=== PATIENT | female | born 1975 | race Hispanic/Latino ===

== ENCOUNTER 2021-01-01 02:11 | Emergency (ER) | payer OTHER, SELFPAY ==
[2021-01-01] MEDS ORDERED: ZIPRASIDONE MESYLATE 20 MG VIAL IM ONE ×2 (04:17→06:15)
--- NOTE | 2021-01-01 04:20 | Emergency Department Report ---
<ALEXANDRA HUMPHREY - Last Filed: 01/01/21 15:03> ED Psych HPI - General Chief Complaint: Psych Stated Complaint: PSYCH Time Seen by Provider: 01/01/21 04:16 - Related Data Allergies Allergy/AdvReac Type Severity Reaction Status Date / Time No Known Allergies Allergy Unverified 01/01/21 06:32 ED Course - Reevaluation(s) Reevaluation #3: 01/01/21 15:04 Psychiatric Consult Note Patient Name: SARAH PATEL Date of : 79 Patient Status: Emergency Emergency Provider: MASSIMO CAMARENA III Date: 01/01/21 11:21 Initialization Date: 01/01/21 11:21 History of Present Illness - Reason for Consult Consult date: 01/01/21 Reason for consult: MHE Requesting physician: MASSIMO CAMARENA III - History of Present Psychiatric Illness Per ED Provider: Patient is a 45-year-old female that presents emergency room with the police and EMS for running on highway negative. Patient's was on a 70 5 running neck. Patient states she was chasing someone and somebody was chasing her but she does not know who. Patient states that she was negative. Patient's not sure how she got negative. Patient states she was being freed. Patient states that she is on the grind. Patient denies pain. Patient denies chest pain shortness of breath. Patient denies pain complaint. Patient denies suicidal and homicidal ideations. Patient denies hallucinations. PSYCH HPI Patient is a 45-year-old, single, employed female with past psychiatric history of bipolar PTSD and anxiety and has past medical history of celiac disease who currently lives with her sister in [place] who goes by the name of Carin with phone #[phone] brought to the ED by EMS after patient was found running on the highway naked. Patient states she is here because she [place] [address] but naked, she states that she does not know what happened or how she ended up naked, kenan ent did endorse prior history of meth opiates and marijuana use. Patient states that she currently resides with her sister and she would like assistance to be contacted so that she knows that she is here. At time of evaluation patient is alert and oriented x3 PAST PSYCHIATRIC HISTORY Diagnoses: Bipolar, PTSD, anxiety Suicide attempts or Self-harm behavior: None reported Prior psychiatric hospitalizations: Yes Substance Abuse history: Meth, opiates and marijuana Previous psychiatric medications tried: Yes Outpatient treatment: Unknown PAST MEDICAL HISTORY: Celiac disease Family Psychiatric History: None reported or documented SOCIAL HISTORY Marital Status: Single Living Arrangements: With sister Employment Status: Employed Access to guns/weapons: None reported Education: GED History of Abuse: None reported Legal History: Yes REVIEW OF SYSTEMS Constitutional: Negative for weight loss ENT: Negative for stridor Respiratory: Negative for cough or hemoptysis All other systems reviewed and are negative MENTAL STATUS EXAMINATION General Appearance and Behavior: Age appropriate, fair hygiene, wearing appropriate clothes, good eye contact, cooperative polite with questioning. Cooperation: Participating/engaged Psychomotor Behavior: unremarkable and within normal limits Mood: sad Affect and affective range: congruent with mood Thought Process: Fluent/Logical, Thought Content: Within reality, Speech: Normal volume, Regular rate and rhythm, Intellectual Functioning: Average Suicidal Ideation: Denies SI Homicidal Ideation: Denies HI Impulse Control: Unimpaired Insight and Judgment: Normal insight and judgment, Memory: Normal, Attention: Normal, Orientation: Alert, oriented, Diagnoses: Assessment and Plan - Psychiatric problem (1) Illicit drug use Current Visit: Yes Status: Acute F19.90 Treatment Plan Patient resting positive for meth and marijuana MEDICATIONS: Risks, benefits and alternatives of medications discussed with the patient, questions answered and consent obtained from patient. PSYCHOTHERAPY: Supportive psychotherapy provided MEDICAL: Per primary team DELIRIUM PRECAUTIONS: Please re-orient patient frequently, keep lights on during the day, and minimize benzodiazepines and opiates as these medications could worsen patient's confusion. SCULPTURE INSTRUCTOR: DISPOSITION: Do Not Recommend acute inpatient psychiatric hospitalization at this time. Case discussed with Dr. Mclain who agrees with current disposition LEGAL STATUS: 1013 rescinded FOLLOW-UP: Will sign off Thank you for the consult. Please contact with any questions and/or concerns. Medications and Allergies Allergies Allergy/AdvReac Type Severity Reaction Status Date / Time No Known Allergies Allergy Unverified 01/01/21 06:32 Mental Status Exam - Vital signs Last Vital Signs Temp 97.9 F 01/01/21 09:15 Pulse 66 01/01/21 09:15 Resp 18 01/01/21 09:15 BP 128/71 01/01/21 09:15 Pulse Ox 98 01/01/21 09:15 Results Result Diagrams: 01/01/21 04:33 [Image 0] 01/01/21 04:33 [Image 1] Abnormal lab results 01/01/21 01/01/21 01/01/21 Range/Units 04:33 04:33 04:33 WBC 16.3 H (4.5-11.0) K/mm3 MCH 33 H (28-32) pg Lymph % (Auto) 10.7 L (13.4-35.0) % [place] # (Auto) 0.9 H (0.0-0.8) K/mm3 Seg Neutrophils % 83.1 H (40.0-70.0) % Seg Neutrophils # 13.5 H (1.8-7.7) K/mm3 Salicylates < 0.3 L (2.8-20.0) mg/dL Acetaminophen 5.0 L (10.0-30.0) ug/mL All other labs normal. Assessment and Plan - Psychiatric problem (1) Illicit drug use Current Visit: Yes Status: Acute ED Medical Decision Making - Lab Data Result diagrams: 01/01/21 04:33 01/01/21 04:33 - Medical Decision Making Patient is now calm and cooperative. Psychiatric team is seeing the patient and did not recommend inpatient hospitalization. The effects of the methamphetamine intoxication and appear to have worn off and patient stable for discharge. ED Disposition Clinical Impression: Acute psychosis, Illicit drug use Disposition: DC-01 TO HOME OR SELFCARE Does the pt Need Aspirin: No Condition: Stable Additional Instructions: Professional and Agency Contacts To help Resolve Crises (26/02) [place] Crisis Line: Suicide Prevention Line: Crisis Text Line: Text START to 608409 Emergency: 911 Outpatient COMMUNITY Behavioral Health Resources: [place]: [facility] [address], [place] [address] [facility] [address] [place] [address] Sunday thru Sunday - 8am - 5pm Call to schedule an assessment for mental health and substance abuse programs [facility] Address: [address] [place] [id number] Sunday thru Sunday- 7am-2pm [facility] Address: [address] [place] [id number] Sunday thru Sunday: 8:30AM-5PM SUBSTANCE ABUSE PROGRAMS: [facility]: Location: [place], [place] [employer] Address: [address] [place] [address] [facility]: Address: [address] [place] [address] [facility]: Address: [address] [place] [address] [facility] Community: Address: [address] [place] [address] Referrals: PRIMARY CARE, [Primary Care Provider] - 3-5 Days Time of Disposition: 15:05 <MASSIMO CAMARENA III - Last Filed: 01/09/21 16:09> ED Psych HPI - General Source: patient, police, EMS Mode of arrival: Stretcher - History of Present Illness Initial Comments: Patient is a 45-year-old female that presents emergency room with the police and EMS for running on highway negative. Patient's was on a 70 5 running neck. Patient states she was chasing someone and somebody was chasing her but she does not know who. Patient states that she was negative. Patient's not sure how she got negative. Patient states she was being freed. Patient states that she is on the grind. Patient denies pain. Patient denies chest pain shortness of breath. Patient denies pain complaint. Patient denies suicidal and homicidal ideations. Patient denies hallucinations. Patient denies recent travel. Patient denies recent international travel. Patient denies exposure to the novel coronavirus. Patient denies sick contacts. Patient denies fever and chills. Patient denies cough. Patient denies diarrhea. Patient denies coming in contact with anybody with symptoms of the novel coronavirus. MD Complaint: altered mental status -: Sudden Associated Psychiatric Symptoms: racing thoughts, delusions History of same: No Quality: constant Improves With: none Worsens With: none Treatments Prior to Arrival: placed on mental he ED Review of Systems ROS: Stated complaint: PSYCH Other details as noted in HPI Constitutional: denies: chills, fever Eyes: denies: eye pain, eye discharge, vision change ENT: denies: ear pain, throat pain Respiratory: denies: cough, shortness of breath, wheezing Cardiovascular: denies: chest pain, palpitations Endocrine: no symptoms reported Gastrointestinal: denies: abdominal pain, nausea, diarrhea Genitourinary: denies: urgency, dysuria, discharge Musculoskeletal: denies: back pain, joint swelling, arthralgia Skin: denies: rash, lesions Neurological: denies: headache, weakness, paresthesias Psychiatric: as per HPI. denies: anxiety, depression Hematological/Lymphatic: denies: easy bleeding, easy bruising ED Past Medical Hx - Past Medical History Previous Medical History?: No - Surgical History Past Surgical History?: No - Family History Family history: no significant - Social History Smoking Status: Current Every Day Smoker Substance Use Type: None ED Physical Exam - General Limitations: Altered Mental Status, Other General appearance: alert, in no apparent distress - Head Head exam: Present: atraumatic, normocephalic - Eye Eye exam: Present: normal appearance - ENT ENT exam: Present: mucous membranes moist - Neck Neck exam: Present: normal inspection - Respiratory Respiratory exam: Present: normal lung sounds bilaterally. Absent: respiratory distress - Cardiovascular Cardiovascular Exam: Present: regular rate, normal rhythm. Absent: systolic murmur, diastolic murmur, rubs, gallop - GI/Abdominal GI/Abdominal exam: Present: soft, normal bowel sounds - Extremities Exam Extremities exam: Present: normal inspection - Back Exam Back exam: Present: normal inspection - Neurological Exam Neurological exam: Present: alert, oriented X3 - Expanded Psychiatric Exam Expanded Focused psych exam: Present: pressured speech, delusional, restlessness, flight of ideas, loose associations - Skin Skin exam: Present: warm, dry, intact, normal color. Absent: rash ED Course Vital Signs 01/01/21 01/01/21 02:11 09:15 Temperature 99 F 97.9 F Pulse Rate 114 H 66 Respiratory 20 18 Rate Blood Pressure 143/77 128/71 [Right] O2 Sat by Pulse 97 98 Oximetry - Reevaluation(s) Reevaluation #1: Initial evaluation done. Patient placed on a 1013. Patient is an ER hold. 01/01/21 04:19 Reevaluation #2: Patient escape the ER. Patient was brought back by security. Patient will be given Geodon for acute agitation. Patient's labs are pending. Patient to the oncoming physician and for medical clearance. 01/01/21 06:08 ED Medical Decision Making - Lab Data Result diagrams: 01/01/21 04:33 01/01/21 04:33 - Medical Decision Making Patient is a 45-year-old female who presents emergency room for mental health evaluation. Patient brought in by EMS and the police. Patient found running down the middle of [place] highway negative. Patient detained by police and brought for mental health evaluation. Patient immediately placed on a 1013. Patient had labs done. - Differential Diagnosis Acute psychosis, delusions Critical care attestation.: If time is entered above; I have spent that time in minutes in the direct care of this critically ill patient, excluding procedure time. ED Disposition Is pt being admited?: No Does the pt Need Aspirin: No Time of Disposition: 06:08
[2021-01-01 05:07] LABS: Basophils % (Auto) 0.2 % (0.0-1.8); Eosinophils % (Auto) 0.3 % (0.0-4.3); Hematocrit 35.4 % (30.3-42.9); Hemoglobin 12.2 gm/dl (10.1-14.3); Lymphocytes # (Auto) 1.7 K/mm3 (1.2-5.4); Lymphocytes % (Auto) 10.7 % (13.4-35.0); Mean Corpuscular HGB Conc 34 % (30-34); Mean Corpuscular Volume 95 fl (79-97); Monocytes # (Auto) 0.9 K/mm3 (0.0-0.8); Monocytes % (Auto) 5.7 % (0.0-7.3); Platelet Count 280 K/mm3 (140-440); Red Blood Count 3.74 M/mm3 (3.65-5.03); Red Cell Distribution Width 13.7 % (13.2-15.2)
[2021-01-01 06:21] LABS: BUN/Creatinine Ratio 17; Blood Urea Nitrogen 15 mg/dL (7-17); Calcium 9.2 mg/dL (8.4-10.2); Hemolysis Index 5
[2021-01-01 07:36] LABS: Bilirubin,Urine NEG (Negative); Blood,Urine NEG (Negative); Color,Urine Yellow (Yellow); Mucus,Urine FEW /HPF; Protein,Urine <15 mg/dL mg/dL (Negative); Urobilinogen,Urine < 2.0 mg/dL (<2.0)
[2021-01-01 07:41] LABS: Benzodiazepines Screen,Urine Negative; Cocaine Screen,Urine Negative; Methadone Screen,Urine Negative; Opiate Screen,Urine Negative
[2021-01-01 07:54] LABS: Amphetamine Screen,Urine Positive; Cannabinoid Screen,Urine Positive
[2021-01-01 09:16] VITALS: BP 128/71
--- NOTE | 2021-01-01 10:57 | Event Note ---
Date: 01/01/21 Patient seen this morning on psych rounding. Patient resting comfortably. She was placed in seclusion due to escape attempt. No further issues. [id number] is been done.
--- NOTE | 2021-01-01 11:22 | Consultation ---
History of Present Illness - Reason for Consult Consult date: 01/01/21 Reason for consult: MHE Requesting physician: MASSIMO CAMARENA III - History of Present Psychiatric Illness Per ED Provider: Patient is a 45-year-old female that presents emergency room with the police and EMS for running on highway negative. Patient's was on a 70 5 running neck. Patient states she was chasing someone and somebody was chasing her but she does not know who. Patient states that she was negative. Patient's not sure how she got negative. Patient states she was being freed. Patient states that she is on the grind. Patient denies pain. Patient denies chest pain shortness of breath. Patient denies pain complaint. Patient denies suicidal and homicidal ideations. Patient denies hallucinations. PSYCH HPI Patient is a 45-year-old, single, employed female with past psychia tric history of bipolar PTSD and anxiety and has past medical history of celiac disease who currently lives with her sister in [place] who goes by the name of Carin with phone #[phone] brought to the ED by EMS after patient was found running on the highway naked. Patient states she is here because she [place] [address] but naked, she states that she does not know what happened or how she ended up naked, patient did endorse prior history of meth opiates and marijuana use. Patient s tates that she currently resides with her sister and she would like assistance to be contacted so that she knows that she is here. At time of evaluation patient is alert and oriented x3 PAST PSYCHIATRIC HISTORY Diagnoses: Bipolar, PTSD, anxiety Suicide attempts or Self-harm behavior: None reported Prior psychiatric hospitalizations: Yes Substance Abuse history: Meth, opiates and marijuana Previous psychiatric medications tried: Yes Outpatient treatment: Unknown PAST MEDICAL HISTORY: Celiac disease Family Psychiatric History: None reported or documented SOCIAL HISTORY Marital Status: Single Living Arrangements: With sister Employment Status: Employed Access to guns/weapons: None reported Education: GED History of Abuse: None reported Legal History: Yes REVIEW OF SYSTEMS Constitutional: Negative for weight loss ENT: Negative for stridor Respiratory: Negative for cough or hemoptysis All other systems reviewed and are negative MENTAL STATUS EXAMINATION General Appearance and Behavior: Age appropriate, fair hygiene, wearing appropriate clothes, good eye contact, cooperative polite with questioning. Cooperation: Participating/engaged Psychomotor Behavior: unremarkable and within normal limits Mood: sad Affect and affective range: congruent with mood Thought Process: Fluent/Logical, Thought Content: Within reality, Speech: Normal volume, Regular rate and rhythm, Intellectual Functioning: Average Suicidal Ideation: Denies SI Homicidal Ideation: Denies HI Impulse Control: Unimpaired Insight and Judgment: Normal insight and judgment, Memory: Normal, Attention: Normal, Orientation: Alert, oriented, Diagnoses: Assessment and Plan - Psychiatric problem (1) Illicit drug use Current Visit: Yes Status: Acute F19.90 Treatment Plan Patient resting positive for meth and marijuana MEDICATIONS: Risks, benefits and alternatives of medications discussed with the patient, questions answered and consent obtained from patient. PSYCHOTHERAPY: Supportive psychotherapy provided MEDICAL: Per primary team DELIRIUM PRECAUTIONS: Please re-orient patient frequently, keep lights on during the day, and minimize benzodiazepines and opiates as these medications could worsen patient's confusion. CONTROLS TECHNICIAN: DISPOSITION: Do Not Recommend acute inpatient psychiatric hospitalization at this time. Case discussed with Dr. Mclain who agrees with current disposition LEGAL STATUS: 1013 rescinded FOLLOW-UP: Will sign off Thank you for the consult. Please contact with any questions and/or concerns. Medications and Allergies Allergies Allergy/AdvReac Type Severity Reaction Status Date / Time No Known Allergies Allergy Unverified 01/01/21 06:32 Mental Status Exam - Vital signs Last Vital Signs Temp 97.9 F 01/01/21 09:15 Pulse 66 01/01/21 09:15 Resp 18 01/01/21 09:15 BP 128/71 01/01/21 09:15 Pulse Ox 98 01/01/21 09:15 Results Result Diagrams: 01/01/21 04:33 01/01/21 04:33 Abnormal lab results 01/01/21 01/01/21 01/01/21 Range/Units 04:33 04:33 04:33 WBC 16.3 H (4.5-11.0) K/mm3 MCH 33 H (28-32) pg Lymph % (Auto) 10.7 L (13.4-35.0) % [place] # (Auto) 0.9 H (0.0-0.8) K/mm3 Seg Neutrophils % 83.1 H (40.0-70.0) % Seg Neutrophils # 13.5 H (1.8-7.7) K/mm3 Salicylates < 0.3 L (2.8-20.0) mg/dL Acetaminophen 5.0 L (10.0-30.0) ug/mL All other labs normal. Assessment and Plan - Psychiatric problem (1) Illicit drug use Current Visit: Yes Status: Acute
== END 2021-01-01 16:49 | disposition home or self-care (01) ==
LOC: ED 02:11
DX: F23 Brief psychotic disorder (principal); Z20.822 Contact with and (suspected) exposure to COVID-19; F19.10 Other psychoactive substance abuse, uncomplicated; F17.200 Nicotine dependence, unspecified, uncomplicated; Z79.899 Other long term (current) drug therapy
CPT/HCPCS: 36415; 80048; 80307; 81001; 85025; 96372; 99284; J3486; U0003; 80320; G0480